=== PATIENT | female | born 1950 | race Caucasian/White ===

== ENCOUNTER 2017-04-20 17:55 | Emergency (ER) | payer MEDICAID, OTHER ==
[~2017-04-20] VITALS: Ht 154.9 cm; Wt 61.4 kg
[~2017-04-20 17:55] MED LIST: METF850T2 PO
[2017-04-20] MEDS ORDERED: INSLAN SQ (18:15)
[2017-04-20 18:22] LABS: GLUCOSE,POINT OF CARE 487 MG/DL (70-110)
[2017-04-20] MEDS: SODIUM CHLORIDE 0.9% 1,000 ML IV ONE ×2 (18:52→20:32)
[2017-04-20 18:55] LABS: BASOPHILS # (AUTO) 0.02 K/uL (0.00-0.20); BASOPHILS % (AUTO) 0.4 % (0.0-2.0); EOSINOPHILS # (AUTO) 0.07 K/uL (0.00-0.70); EOSINOPHILS % (AUTO) 1.64 % (1.0-6.0); HEMATOCRIT 42.1 % (36-46); LYMPHOCYTES # (AUTO) 1.5 K/uL (1.0-4.8); LYMPHOCYTES % (AUTO) 34.2 % (22.0-44.0); MEAN CORPUSCULAR HEMOGLOBIN 29.1 pg (26.0-34.0); MEAN CORPUSCULAR HGB CONC 33.2 G/dL (31.0-37.0); MEAN CORPUSCULAR VOLUME 87 fL (80-100); MONOCYTES # (AUTO) 0.2 K/uL (0.1-1.0); MONOCYTES % (AUTO) 5.2 % (2.0-9.0); NEUTROPHILS # (AUTO) 2.6 K/uL (1.8-7.7); NEUTROPHILS % (AUTO) 58.6 % (40.0-70.0); PLATELET COUNT (AUTO) 212 K/uL (150-450); RED BLOOD CELL COUNT(AUTO) 4.82 MIL/uL (4.00-5.20); RED CELL DISTRIBUTION WIDTH 13.3 % (11.5-14.5); WHITE BLOOD COUNT (AUTO) 4.5 K/uL (4.5-11.0)
[2017-04-20 19:12] LABS: ALANINE AMINOTRANSFERASE 30 U/L (12-78); ALBUMIN 3.9 g/dL (3.4-5.0); ANION GAP 8 mmol/L (8-16); ASPARTATE AMINOTRANSFERASE 14 U/L (15-37); BILIRUBIN,TOTAL 0.4 mg/dL (0.1-1.0); CALCIUM, TOTAL 8.9 mg/dL (8.8-10.5); CARBON DIOXIDE 30 mmol/L (22-29); CHLORIDE 96 mmol/L (98-107); CREATININE 0.89 mg/dL (0.60-1.30); GLOMERULAR FILTR. RATE CALC > 60 mL/min (>60); POTASSIUM 3.9 mmol/L (3.5-5.1); SODIUM SERUM 134 mmol/L (136-145); TOTAL PROTEIN, SERUM 7.3 g/dL (6.4-8.2); UREA NITROGEN, BLOOD 14 mg/dL (7-18)
[2017-04-20] MEDS: INSULIN REGULAR, HUMAN 100 UNITS/ML IVP ONE (19:50)
[2017-04-20] MEDS: LIDOCAINE HCL BUFFERED 1% 20 ML VIAL INJ ONE (19:57)
[2017-04-20 20:01] LABS: GLUCOSE COMMENT 1 Doctor Notified; GLUCOSE,POINT OF CARE 436 MG/DL (70-110)
[2017-04-20 21:06] LABS: GLUCOSE,POINT OF CARE 182 MG/DL (70-110)
[2017-04-20 21:10] VITALS: BP 141/74
== END 2017-04-20 21:22 | disposition home or self-care (01) ==
LOC: EMS 17:56
DX: S01.01XA Laceration without foreign body of scalp, initial encounter (principal); E11.65 Type 2 diabetes mellitus with hyperglycemia; Z79.4 Long term (current) use of insulin; W01.0XXA Fall on same level from slipping, tripping and stumbling without subsequent striking against object, initial encounter; Y93.89 Activity, other specified; Y92.89 Other specified places as the place of occurrence of the external cause; Y99.8 Other external cause status
CPT/HCPCS: 12001; 36415; 80053; 82962; 85025; 96361; 96374; 99284; J1815; J3490; J7030

== ENCOUNTER 2017-04-22 08:40 | Emergency (ER) | payer OTHER ==
[~2017-04-22] VITALS: Ht 149.9 cm; Wt 68.0 kg
[~2017-04-22 08:40] MED LIST changes: +INSLAN SQ
[2017-04-22 08:52] LABS: GLUCOSE,POINT OF CARE 244 MG/DL (70-110)
[2017-04-22 09:19] VITALS: BP 139/79
== END 2017-04-22 11:11 | disposition home or self-care (01) ==
LOC: EMS 08:42
DX: S01.01XD Laceration without foreign body of scalp, subsequent encounter (principal); E11.9 Type 2 diabetes mellitus without complications; Z79.4 Long term (current) use of insulin; X58.XXXD Exposure to other specified factors, subsequent encounter; Y92.89 Other specified places as the place of occurrence of the external cause; Y99.8 Other external cause status
CPT/HCPCS: 82962; 99282

== ENCOUNTER 2018-02-05 16:55 | Emergency (ER) | payer OTHER ==
[~2018-02-05] VITALS: Ht 149.9 cm; Wt 63.6 kg
[2018-02-05 17:12] LABS: GLUCOSE,POINT OF CARE 164 MG/DL (70-110)
[2018-02-05] MEDS ORDERED: LISI-660 PO (17:21)
[2018-02-05] MEDS ORDERED: PIOG45TA4 PO (17:21)
[2018-02-05] MEDS ORDERED: ATOR20TA86 PO (17:21)
[2018-02-05] MEDS ORDERED: ASPI-1182 PO (17:21)
[2018-02-05] MEDS ORDERED: MAGNESIUM HYDROXIDE SUSPENSION 30 ML UDCUP PO ONE (19:30)
[2018-02-05] MEDS ORDERED: ACETAMINOPHEN 500 MG TABLET PO ONE (19:30)
[2018-02-05 20:49] VITALS: BP 140/70
[2018-02-06] MEDS ORDERED: DSS100 PO (17:45)
== END 2018-02-05 20:58 | disposition home or self-care (01) ==
LOC: EMS 16:59
DX: K64.9 Unspecified hemorrhoids (principal); K59.00 Constipation, unspecified; E11.9 Type 2 diabetes mellitus without complications
CPT/HCPCS: 82270; 82271; 82962; 99283

== ENCOUNTER 2018-02-06 17:26 | Emergency (ER) | payer OTHER ==
[~2018-02-06] VITALS: Ht 154.9 cm; Wt 70.0 kg
[~2018-02-06 17:26] MED LIST changes: +ASPI-1182 PO; +ATOR20TA86 PO; +LISI-660 PO; +PIOG45TA4 PO
[2018-02-06] MEDS ORDERED: DSS100 PO (17:45)
[2018-02-06 17:53] LABS: GLUCOSE,POINT OF CARE 230 MG/DL (70-110)
[2018-02-06 18:44] LABS: BASOPHILS % (AUTO) 0.8 % (0.0-2.0); EOSINOPHILS % (AUTO) 0.5 % (1.0-6.0); HEMATOCRIT 38.6 % (36-46); LYMPHOCYTES # (AUTO) 1.4 K/uL (1.0-4.8); MEAN CORPUSCULAR HEMOGLOBIN 29.1 pg (26.0-34.0); MEAN CORPUSCULAR HGB CONC 33.8 G/dL (31.0-37.0); MEAN CORPUSCULAR VOLUME 86 fL (80-100); MONOCYTES # (AUTO) 0.3 K/uL (0.1-1.0); MONOCYTES % (AUTO) 5.2 % (2.0-9.0); NEUTROPHILS # (AUTO) 3.7 K/uL (1.8-7.7); NEUTROPHILS % (AUTO) 68.5 % (40.0-70.0); PLATELET COUNT (AUTO) 242 K/uL (150-450); RED BLOOD CELL COUNT(AUTO) 4.48 MIL/uL (4.00-5.20); RED CELL DISTRIBUTION WIDTH 13.7 % (11.5-14.5)
[2018-02-06] MEDS ORDERED: SODIUM PHOS/SODIUM BIPHOS 133 ML ENEMA PR ONE (18:45)
[2018-02-06 18:54] LABS: ANION GAP 8 mmol/L (8-16); CALCIUM, TOTAL 9.3 mg/dL (8.8-10.5); CARBON DIOXIDE 27 mmol/L (22-29); CHLORIDE 99 mmol/L (98-107); CREATININE 0.59 mg/dL (0.60-1.30); GLOMERULAR FILTR. RATE CALC > 60 mL/min (>60); GLUCOSE,RANDOM 222 mg/dL (70-110); POTASSIUM 4.5 mmol/L (3.5-5.1); SODIUM SERUM 134 mmol/L (136-145); UREA NITROGEN, BLOOD 11 mg/dL (7-18)
[2018-02-06 19:00] LABS: ALANINE AMINOTRANSFERASE 44 U/L (12-78); ALKALINE PHOSPHATASE 140 U/L (46-116); ASPARTATE AMINOTRANSFERASE 24 U/L (15-37); BILIRUBIN,TOTAL 0.4 mg/dL (0.1-1.0); TOTAL PROTEIN, SERUM 7.8 g/dL (6.4-8.2)
[2018-02-06] MEDS ORDERED: MINERAL OIL 300 ML RECTAL PR ONE (20:15)
[2018-02-06 22:15] VITALS: BP 142/86
== END 2018-02-06 22:28 | disposition home or self-care (01) ==
LOC: EMS 17:27
DX: K59.00 Constipation, unspecified (principal); E11.9 Type 2 diabetes mellitus without complications; R03.0 Elevated blood-pressure reading, without diagnosis of hypertension; Z79.82 Long term (current) use of aspirin; Z79.4 Long term (current) use of insulin
CPT/HCPCS: 74018; 82962; 99285

== ENCOUNTER 2019-10-28 21:39 | Emergency (ER) | payer OTHER ==
[~2019-10-28] VITALS: Ht 162.6 cm; Wt 80.0 kg
[~2019-10-28 21:39] MED LIST changes: +DSS100 PO; +METF-445 PO; -METF850T2 PO
[2019-10-28] MEDS ORDERED: KETOROLAC TROMETHAMINE 30 MG/ML VIAL IM ONE (22:45)
[2019-10-28 23:01] VITALS: BP 176/81
== END 2019-10-28 23:40 | disposition home or self-care (01) ==
LOC: EMS 21:40
DX: S82.65XA Nondisplaced fracture of lateral malleolus of left fibula, initial encounter for closed fracture (principal); E11.9 Type 2 diabetes mellitus without complications; Z90.89 Acquired absence of other organs; Z79.84 Long term (current) use of oral hypoglycemic drugs; Z79.4 Long term (current) use of insulin; Z79.899 Other long term (current) drug therapy
CPT/HCPCS: 29515; 73590; 73610; 96372; 99283; J1885

== ENCOUNTER 2022-07-04 12:43 | Emergency (ER) | payer OTHER ==
[~2022-07-04] VITALS: Ht 160 cm; Wt 75.0 kg
[~2022-07-04 12:43] MED LIST changes: -ASPI-1182 PO; +ASPI-1444 PO; -LISI-660 PO; +LISI-892 PO; -PIOG45TA4 PO
[2022-07-04] MEDS ORDERED: METF-1211 PO (14:52)
[2022-07-04] MEDS ORDERED: DOCU-385 PO (14:52)
[2022-07-04] MEDS ORDERED: LIDOCAINE 5% TRANSDERMAL PATCH TD ONE (16:30)
[2022-07-04 19:17] VITALS: BP 138/64
[2022-07-04] MEDS ORDERED: KETOROLAC TROMETHAMINE 30 MG/ML VIAL IM ONE (19:30)
[2022-07-04] MEDS ORDERED: IBUP-2070 PO (19:50)
[2022-07-04] MEDS ORDERED: LIDO700A15 TP (19:51)
[2022-07-05] MEDS ORDERED: LIDO700A15 TP (16:25)
[2022-07-05] MEDS ORDERED: IBUP-2070 PO (16:26)
== END 2022-07-04 20:41 | disposition home or self-care (01) ==
LOC: EMS 12:43
DX: S20.212A Contusion of left front wall of thorax, initial encounter (principal); E11.9 Type 2 diabetes mellitus without complications; K59.00 Constipation, unspecified; V09.9XXA Pedestrian injured in unspecified transport accident, initial encounter; Y93.89 Activity, other specified; Y92.89 Other specified places as the place of occurrence of the external cause; Y99.8 Other external cause status
CPT/HCPCS: 99283; 71045; 96372; G0238; J1885